=== PATIENT | female | born 1945 | race Caucasian/White ===

== ENCOUNTER → 2017-04-10 | Outpatient (CLI) | payer MEDICARE, OTHER ==
[~2017-04-10] MED LIST: ALPR0.5T99 PO; BUPR150T3 PO; BYST5TAB2 PO; CO Q60CA2 PO; ECOT81TA2 PO; NEXI40CA PO; OMNASPR2 INH; ROSU20 PO; VAGI10TA VA; VESI5TAB PO; XYZA5TAB2 PO
== END ==
LOC: PHRSP 10:27
DX: J45.909 Unspecified asthma, uncomplicated (principal); R05 Cough; R06.00 Dyspnea, unspecified
CPT/HCPCS: 94060; 94726; 94729